=== PATIENT | male | born 1955 | race Caucasian/White ===

== ENCOUNTER 2019-04-29 12:21 | Day surgery (SDC) | payer OTHER ==
[~2019-04-29] VITALS: Ht 182.9 cm; Wt 98.3 kg
[~2019-04-29 12:21] MED LIST: METF500T17 PO; PRAV20TA2 PO; TAMS-11 PO
[2019-04-29 12:51] VITALS: BP 144/81
[2019-04-29] MEDS ORDERED: LACTATED RINGERS 1,000 ML IV SCH ×2 (12:53→15:21)
[2019-04-29] MEDS ORDERED: ACETAMINOPHEN 500 MG TABLET PO ONE (13:00)
[2019-04-29] MEDS ORDERED: GABAPENTIN 300 MG CAPSULE PO ONE (13:00)
[2019-04-29] MEDS ORDERED: FENTANYL PF 100 MCG/2ML ONE ×2 (13:44→14:27)
[2019-04-29] MEDS ORDERED: MIDAZOLAM 1 MG/ML, 2ML ONE (13:44)
[2019-04-29] MEDS ORDERED: BUPIVACAINE/EPI 0.5% 1:200K ONE (13:57)
[2019-04-29] MEDS ORDERED: hydrALAzine 20 MG/ML, 1ML IV PRN (14:00)
[2019-04-29] MEDS ORDERED: OXYcodone 5 MG/5 ML ORAL.SOL UDC PO PRN (14:00)
[2019-04-29] MEDS ORDERED: MEPERIDINE/PF 25MG/ML,1ML IVPush PRN (14:00)
[2019-04-29] MEDS ORDERED: LABETALOL 5MG/ML, 20ML IV PRN (14:00)
[2019-04-29] MEDS ORDERED: EPHEDRINE 50 MG/ML, 1ML IVPush PRN (14:00)
[2019-04-29] MEDS ORDERED: PROMETHAZINE 25 MG/ML, 1ML IV PRN (14:00)
[2019-04-29] MEDS ORDERED: ONDANSETRON 2MG/ML, 2ML IV PRN (14:00)
[2019-04-29] MEDS ORDERED: HYDROmorphone 2 MG/ML, 1ML IVPush PRN (14:00)
[2019-04-29] MEDS ORDERED: FENTANYL PF 100 MCG/2ML IV PRN (14:00)
[2019-04-29] MEDS ORDERED: CEFAZOLIN 1,000 MG ONE (14:15)
[2019-04-29] MEDS ORDERED: PROPOFOL 10 MG/ML, 20ML ONE (14:15)
[2019-04-29] MEDS ORDERED: KETOROLAC 30 MG/1 ML ONE (14:15)
[2019-04-29] MEDS ORDERED: SUCCINYLCHOLINE 20 MG/ML, 10ML ONE (14:15)
[2019-04-29] MEDS ORDERED: DEXAMETHASONE 4 MG/ML, 1ML ONE (14:15)
[2019-04-29] MEDS ORDERED: ONDANSETRON 2MG/ML, 2ML ONE (14:39)
[2019-04-29] MEDS ORDERED: PROMETHAZINE 25 MG/ML, 1ML IM PRN (15:30)
[2019-04-29] MEDS ORDERED: ONDANSETRON 2MG/ML, 2ML IVPush PRN (15:30)
[2019-04-29] MEDS ORDERED: morphine SULFATE 10 MG/ML, 1ML IVPush PRN (15:30)
== END 2019-04-29 17:14 | disposition home or self-care (01) ==
LOC: OUT 12:21
PROVIDERS: ATTEND Surgery
DX: K40.90 Unilateral inguinal hernia, without obstruction or gangrene, not specified as recurrent (principal); D17.6 Benign lipomatous neoplasm of spermatic cord; E78.5 Hyperlipidemia, unspecified; E11.9 Type 2 diabetes mellitus without complications; N40.0 Benign prostatic hyperplasia without lower urinary tract symptoms; Z79.84 Long term (current) use of oral hypoglycemic drugs; Z79.899 Other long term (current) drug therapy
CPT/HCPCS: 49505; 93005; C1781; J0330; J0690; J1100; J1885; J2250; J2405; J2704; J3010; J7120